=== PATIENT | female | born 1995 | race African-American/Black ===

== ENCOUNTER 2016-07-11 09:14 | Emergency (ER) | payer MEDICAID ==
[~2016-07-11] VITALS: Ht 167.6 cm; Wt 54.0 kg
[2016-07-11] MEDS ORDERED: ONDANSETRON HCL 4MG/2ML VIAL IV STA (09:39)
[2016-07-11] MEDS ORDERED: IBUPROFEN 600MG TABLET PO STA (09:39)
[2016-07-11] MEDS ORDERED: DICYCLOMINE HCL 10MG CAPSULE PO ONE (09:45)
[2016-07-11 10:14] LABS: HEMATOCRIT. 38.9 % (36.0-48.0); HEMOGLOBIN. 12.9 g/dL (12.0-16.0); MEAN CORPUSCULAR HEMOGLOBIN 27.6 pg (28.0-32.0); MEAN CORPUSCULAR VOLUME 83.1 fL (81.0-99.0); MEAN PLATELET VOLUME 8.6 fl (7.4-10.4); PLATELET 213 x1000/uL (130-400); RED BLOOD CELL COUNT 4.68 mill/uL (4.2-5.4)
[2016-07-11] MEDS ORDERED: MORPHINE SULFATE 4 MG/ML CPJ (NOT FOR IM USE) IV ONE (10:15)
[2016-07-11] MEDS ORDERED: KETOROLAC 30MG/ML VIAL IV ONE (10:15)
[2016-07-11 10:20] LABS: CHLORIDE 108 mEq/L (98-107)
[2016-07-11 10:26] LABS: CARBON DIOXIDE 23 mEq/L (21-32)
[2016-07-11 10:59] LABS: PLATELET ESTIMATE NORMAL
[2016-07-11 11:07] LABS: GLUCOSE URINE NEGATIVE (NEGATIVE); KETONES URINE 3+ (NEGATIVE); LEUKOCYTE ESTERASE URINE 2+ (NEGATIVE); NITRITE URINE NEGATIVE (NEGATIVE); OCCULT BLOOD URINE 3+ (NEGATIVE); PROTEIN URINE 2+ (NEGATIVE); SPECIFIC GRAVITY URINE 1.021 (1.005-1.030)
[2016-07-11 11:09] LABS: CLARITY URINE CLOUDY (CLEAR); COLOR URINE YELLOW (YELLOW)
[2016-07-11 11:45] LABS: *AMPHETAMINES SCREEN URINE NEGATIVE (NEGATIVE); *BARBITURATES SCREEN URINE NEGATIVE (NEGATIVE); *BENZODIAZEPINES SCREEN URINE NEGATIVE (NEGATIVE); *COCAINE SCREEN URINE NEGATIVE (NEGATIVE); METHADONE URINE SCREEN NEGATIVE (NEGATIVE); OPIATES URINE SCREEN NEGATIVE (NEGATIVE); PHENCYCLIDINE URINE SCREEN NEGATIVE (NEGATIVE)
[2016-07-11] MEDS ORDERED: METOCLOPRAMIDE HCL 10MG/2ML VIAL IV ONE (11:45)
[2016-07-11] MEDS ORDERED: NITROFURANTOIN 100MG M/M CAPSULE PO ONE (11:45)
[2016-07-11 11:59] LABS: CANNABINOID URINE SCREEN PRESUMTIVE POSITIVE (NEGATIVE)
[2016-07-11 12:00] VITALS: BP 105/59
[2016-07-11] MEDS ORDERED: SODIUM CHLORIDE 0.9% 500 ML IV ONE (12:15)
== END 2016-07-11 13:24 | disposition home or self-care (01) ==
LOC: ER 09:14
DX: N39.0 Urinary tract infection, site not specified (principal)
CPT/HCPCS: 36415; 80053; 80305; 81001; 81025; 83690; 85025; 96361; 96374; 96375; 99284; J2270; J2405; J2765; J7040; Z7610

== ENCOUNTER 2016-08-08 16:49 | Emergency (ER) | payer MEDICAID ==
[~2016-08-08] VITALS: Ht 167.6 cm; Wt 48.0 kg
[2016-08-08] MEDS ORDERED: ONDANSETRON HCL 4MG/2ML VIAL IV STA (17:39)
[2016-08-08] MEDS ORDERED: KETOROLAC 30MG/ML VIAL IV STA (17:39)
[2016-08-08] MEDS ORDERED: SODIUM CHLORIDE 0.9% 1,000 ML IV ONE (17:39)
[2016-08-08 18:12] LABS: BASOPHILS % 0.8 % (0.0-2.0); EOSINOPHILS % 1.1 % (0.0-5.0); HEMATOCRIT. 36.1 % (36.0-48.0); HEMOGLOBIN. 12.1 g/dL (12.0-16.0); INR 1.1; LYMPHOCYTES % 33.4 % (20.0-50.0); MEAN CORPUSCULAR HEMOGLOBIN 28.2 pg (28.0-32.0); MEAN CORPUSCULAR VOLUME 84.3 fL (81.0-99.0); MEAN PLATELET VOLUME 8.7 fl (7.4-10.4); MONOCYTES % 6.3 % (2.0-8.0); NEUTROPHILS % 58.4 % (40.0-76.0); PLATELET 198 x1000/uL (130-400); PROTHROMBIN TIME 11.1 sec; RED BLOOD CELL COUNT 4.28 mill/uL (4.2-5.4)
[2016-08-08 18:15] LABS: CLARITY URINE CLEAR (CLEAR); COLOR URINE YELLOW (YELLOW); GLUCOSE URINE NEGATIVE (NEGATIVE); KETONES URINE NEGATIVE (NEGATIVE); LEUKOCYTE ESTERASE URINE 1+ (NEGATIVE); NITRITE URINE NEGATIVE (NEGATIVE); OCCULT BLOOD URINE NEGATIVE (NEGATIVE); PH URINE 6.5 (4.5-8.0); PROTEIN URINE NEGATIVE (NEGATIVE); SPECIFIC GRAVITY URINE 1.027 (1.005-1.030)
[2016-08-08 18:21] LABS: CARBON DIOXIDE 28 mEq/L (21-32); CHLORIDE 108 mEq/L (98-107)
[2016-08-08] MEDS ORDERED: MORPHINE SULFATE 4 MG/ML CPJ (NOT FOR IM USE) IV ONE (20:15)
[2016-08-08 20:40] LABS: *AMPHETAMINES SCREEN URINE NEGATIVE (NEGATIVE); *BARBITURATES SCREEN URINE NEGATIVE (NEGATIVE); *COCAINE SCREEN URINE NEGATIVE (NEGATIVE); METHADONE URINE SCREEN NEGATIVE (NEGATIVE); OPIATES URINE SCREEN NEGATIVE (NEGATIVE); PHENCYCLIDINE URINE SCREEN NEGATIVE (NEGATIVE)
[2016-08-08 20:42] VITALS: BP 114/58
[2016-08-08 20:46] LABS: *BENZODIAZEPINES SCREEN URINE NEGATIVE (NEGATIVE)
[2016-08-08 20:50] LABS: CANNABINOID URINE SCREEN PRESUMTIVE POSITIVE (NEGATIVE)
== END 2016-08-08 20:43 | disposition home or self-care (01) ==
LOC: ER 18:27
DX: N39.0 Urinary tract infection, site not specified (principal); N94.6 Dysmenorrhea, unspecified; M54.5 Low back pain; Z87.442 Personal history of urinary calculi
CPT/HCPCS: 36415; 76770; 80053; 80305; 81001; 81025; 85025; 85610; 96361; 96374; 96375; 99285; J1885; J2270; J2405; J7030

== ENCOUNTER 2016-10-12 04:18 | Inpatient (IN) | payer MEDICAID ==
[~2016-10-12] VITALS: Ht 165.1 cm; Wt 54.9 kg
[2016-10-12 05:33] LABS: CLARITY URINE CLOUDY (CLEAR); COLOR URINE YELLOW (YELLOW); GLUCOSE URINE NEGATIVE (NEGATIVE); KETONES URINE 2+ (NEGATIVE); LEUKOCYTE ESTERASE URINE 1+ (NEGATIVE); NITRITE URINE POSITIVE (NEGATIVE); OCCULT BLOOD URINE 3+ (NEGATIVE); PROTEIN URINE TRACE (NEGATIVE); SPECIFIC GRAVITY URINE 1.022 (1.005-1.030); UROBILINOGEN URINE 0.2 E.U./dL (0.2-1.0)
[2016-10-12] MEDS ORDERED: SODIUM CHLORIDE 0.9% 1,000 ML IV ONE (07:54)
[2016-10-12] MEDS ORDERED: ONDANSETRON HCL 4MG/2ML VIAL IV STA (07:54)
[2016-10-12] MEDS ORDERED: KETOROLAC 30MG/ML VIAL IV STA (07:54)
[2016-10-12 08:17] LABS: HEMATOCRIT. 38.8 % (36.0-48.0); HEMOGLOBIN. 12.7 g/dL (12.0-16.0); MEAN CORPUSCULAR HEMOGLOBIN 27.7 pg (28.0-32.0); MEAN CORPUSCULAR VOLUME 84.7 fL (81.0-99.0); MEAN PLATELET VOLUME 8.4 fl (7.4-10.4); PLATELET 226 x1000/uL (130-400); RED BLOOD CELL COUNT 4.58 mill/uL (4.2-5.4); RED CELL DISTRIBUTION WIDTH 14.4 % (11.6-14.6)
[2016-10-12 08:22] LABS: CHLORIDE 106 mEq/L (98-107)
[2016-10-12 08:23] LABS: INR 1.1; PROTHROMBIN TIME 11.2 sec (9.4-11.6)
[2016-10-12 08:26] LABS: CARBON DIOXIDE 24 mEq/L (21-32)
[2016-10-12 08:53] LABS: PLATELET ESTIMATE NORMAL
[2016-10-12] MEDS ORDERED: MORPHINE SULFATE 4 MG/ML CPJ (NOT FOR IM USE) IV STA (10:13)
[2016-10-12] MEDS ORDERED: CEFTRIAXONE 2 G PREMIX 50 ML IV ONE (10:15)
[2016-10-12] MEDS ORDERED: PIPERACILLIN/TAZ 3.375G PREMIX 50 ML IV ONE (10:15)
[2016-10-12] MEDS ORDERED: ONDANSETRON HCL 4MG/2ML VIAL IV ONE (10:30)
[2016-10-12] MEDS ORDERED: SODIUM CHLORIDE 0.9% 1,000 ML IV SCH (10:34)
[2016-10-12] MEDS ORDERED: IBUPROFEN 600MG TABLET PO PRN (10:45)
[2016-10-12 12:45] VITALS: BP 142/83
[2016-10-12] MEDS ORDERED: ONDANSETRON HCL 4MG/2ML VIAL IV PRN (13:00)
[2016-10-12] MEDS: MORPHINE SULFATE 4 MG/ML CPJ (NOT FOR IM USE) IV PRN ×2 (15:10→21:25)
[2016-10-12] MEDS: METOCLOPRAMIDE HCL 10MG/2ML VIAL IV SCH ×2 (15:10→18:19)
[2016-10-12 16:00] VITALS: BP 122/80
[2016-10-12 20:04] VITALS: BP 116/57
[2016-10-13] VITALS: BP 173/95
[2016-10-13] MEDS: METOCLOPRAMIDE HCL 10MG/2ML VIAL IV SCH ×3 (00:08→12:39)
[2016-10-13 00:42] VITALS: BP 112/67
[2016-10-13] MEDS: MORPHINE SULFATE 4 MG/ML CPJ (NOT FOR IM USE) IV PRN ×2 (05:06→10:17)
[2016-10-13 06:20] VITALS: BP 104/63
[2016-10-13 08:00] VITALS: BP 103/62
[2016-10-13] MEDS ORDERED: CEFTRIAXONE 1 G PREMIX 50 ML IV SCH (09:00)
[2016-10-13 10:31] LABS: BASOPHILS % 0.7 % (0.0-2.0); EOSINOPHILS % 0.2 % (0.0-5.0); HEMATOCRIT. 36.2 % (36.0-48.0); HEMOGLOBIN. 12.1 g/dL (12.0-16.0); LYMPHOCYTES % 20.6 % (20.0-50.0); MEAN CORPUSCULAR HEMOGLOBIN 28.1 pg (28.0-32.0); MEAN CORPUSCULAR VOLUME 83.9 fL (81.0-99.0); MEAN PLATELET VOLUME 8.5 fl (7.4-10.4); MONOCYTES % 8.1 % (2.0-8.0); NEUTROPHILS % 70.4 % (40.0-76.0); PLATELET 190 x1000/uL (130-400); RED BLOOD CELL COUNT 4.31 mill/uL (4.2-5.4); RED CELL DISTRIBUTION WIDTH 14.4 % (11.6-14.6)
[2016-10-13 10:49] LABS: CARBON DIOXIDE 27 mEq/L (21-32); CHLORIDE 103 mEq/L (98-107)
[2016-10-13 12:00] VITALS: BP 106/63
[2016-10-13] MEDS ORDERED: POTASSIUM CHLORIDE 20MEQ TABLET SR PO NR (13:30)
[2016-10-13 15:22] LABS: CLARITY URINE CLEAR (CLEAR); COLOR URINE YELLOW (YELLOW); GLUCOSE URINE NEGATIVE (NEGATIVE); KETONES URINE NEGATIVE (NEGATIVE); LEUKOCYTE ESTERASE URINE 2+ (NEGATIVE); NITRITE URINE NEGATIVE (NEGATIVE); OCCULT BLOOD URINE 3+ (NEGATIVE); PROTEIN URINE TRACE (NEGATIVE); SPECIFIC GRAVITY URINE 1.017 (1.005-1.030); UROBILINOGEN URINE 0.2 E.U./dL (0.2-1.0)
[2016-10-13 15:26] LABS: UCG SCREEN NEGATIVE
[2016-10-13 16:37] VITALS: BP 109/73
== END 2016-10-13 17:12 | disposition home or self-care (01) | DRG 465 ==
LOC: ER 07:45 → 8WST 10:40 → EDBEDREQ 10:46 → ENRESERV 12:10
PROVIDERS: ADMIT Internal Medicine; ATTEND Internal Medicine
DX: N20.0 Calculus of kidney (principal); E87.2 Acidosis; N39.0 Urinary tract infection, site not specified; R73.9 Hyperglycemia, unspecified; D72.829 Elevated white blood cell count, unspecified
CPT/HCPCS: 36415; 74176; 80048; 80053; 81001; 81025; 83605; 83690; 85025; 85610; 87040; 87077; 87086; 87186; 96361; 96365; 96375; 96376; 99285; J0696; J1885; J2270; J2405; J2543; J2765; J7030

== ENCOUNTER 2017-02-02 18:18 | Emergency (ER) | payer MEDICAID ==
[~2017-02-02] VITALS: Ht 165.1 cm; Wt 54.0 kg
[2017-02-02 19:55] VITALS: BP 125/79
[2017-02-02 21:01] LABS: CLARITY URINE CLOUDY (CLEAR); COLOR URINE YELLOW (YELLOW); KETONES URINE NEGATIVE (NEGATIVE); LEUKOCYTE ESTERASE URINE TRACE (NEGATIVE); NITRITE URINE NEGATIVE (NEGATIVE); OCCULT BLOOD URINE NEGATIVE (NEGATIVE); PROTEIN URINE NEGATIVE (NEGATIVE); SPECIFIC GRAVITY URINE 1.012 (1.005-1.030); UROBILINOGEN URINE 0.2 E.U./dL (0.2-1.0)
[2017-02-02 21:15] LABS: BASOPHILS % 0.6 % (0.0-2.0); EOSINOPHILS % 0.8 % (0.0-5.0); HEMATOCRIT. 33.7 % (36.0-48.0); HEMOGLOBIN. 11.4 g/dL (12.0-16.0); LYMPHOCYTES % 31.1 % (20.0-50.0); MEAN CORPUSCULAR HEMOGLOBIN 28.3 pg (28.0-32.0); MEAN PLATELET VOLUME 8.5 fl (7.4-10.4); MONOCYTES % 6.3 % (2.0-8.0); NEUTROPHILS % 61.2 % (40.0-76.0); PLATELET 195 x1000/uL (130-400); RED BLOOD CELL COUNT 4.02 mill/uL (4.2-5.4); RED CELL DISTRIBUTION WIDTH 12.1 % (11.6-14.6)
[2017-02-02 21:21] LABS: CARBON DIOXIDE 26 mEq/L (21-32); CHLORIDE 105 mEq/L (98-107)
[2017-02-02 21:40] LABS: B-HCG QUANTITATIVE 133065 mIU/mL (<3)
== END 2017-02-02 22:52 | disposition home or self-care (01) ==
LOC: ER 19:07
DX: O26.891 Other specified pregnancy related conditions, first trimester (principal); R10.2 Pelvic and perineal pain; Z3A.09 9 weeks gestation of pregnancy
CPT/HCPCS: 36415; 76801; 80053; 81001; 81025; 83690; 84702; 85025; 86850; 86900; 86901; 99285; Z7610

== ENCOUNTER 2017-08-12 17:16 | Observation (INO) | payer MEDICAID ==
[2017-08-12] MEDS ORDERED: PREN-142 PO (17:56)
== END 2017-08-12 18:23 | disposition home or self-care (01) ==
LOC: L&D 17:16
PROVIDERS: ADMIT Obstetrics & Gynecology; ATTEND Obstetrics & Gynecology
DX: O26.893 Other specified pregnancy related conditions, third trimester (principal); R07.81 Pleurodynia; O99.89 Other specified diseases and conditions complicating pregnancy, childbirth and the puerperium; M79.89 Other specified soft tissue disorders; Z3A.36 36 weeks gestation of pregnancy
CPT/HCPCS: 99281; G0378

== ENCOUNTER 2017-09-16 10:28 | Observation (INO) | payer MEDICAID ==
[~2017-09-16] VITALS: Ht 165.1 cm; Wt 79.4 kg
[~2017-09-16 10:28] MED LIST: PREN-142 PO
== END 2017-09-16 11:40 | disposition home or self-care (01) ==
LOC: L&D 10:28
PROVIDERS: ADMIT Obstetrics & Gynecology; ATTEND Obstetrics & Gynecology
DX: O62.9 Abnormality of forces of labor, unspecified (principal); O48.0 Post-term pregnancy; Z3A.40 40 weeks gestation of pregnancy
CPT/HCPCS: 99281; G0378

== ENCOUNTER 2020-03-14 17:47 | Emergency (ER) | payer MEDICAID ==
[~2020-03-14] VITALS: Ht 167.6 cm; Wt 67.0 kg
[~2020-03-14 17:47] MED LIST changes: -PREN-142 PO; +PRENATAL ONE T1 EACH PO
[2020-03-14] MEDS ORDERED: ACETAMINOPHEN 325MG TABLET PO STA (18:48)
[2020-03-14 19:26] LABS: BASOPHILS % 0.8 % (0.0-2.0); EOSINOPHILS % 0.5 % (0.0-5.0); HEMATOCRIT. 38.9 % (36.0-48.0); HEMOGLOBIN. 12.9 g/dL (12.0-16.0); LYMPHOCYTES % 20.3 % (20.0-50.0); MEAN CORPUSCULAR HEMOGLOBIN 26.5 pg (28.0-32.0); MEAN CORPUSCULAR VOLUME 79.7 fL (81.0-99.0); MEAN PLATELET VOLUME 9.2 fl (7.4-10.4); MONOCYTES % 7.6 % (2.0-8.0); NEUTROPHILS % 70.8 % (40.0-76.0); PLATELET 221 x1000/uL (130-400); RED BLOOD CELL COUNT 4.89 mill/uL (4.2-5.4)
[2020-03-14 19:42] LABS: CLARITY URINE CLOUDY (CLEAR); COLOR URINE YELLOW (YELLOW); KETONES URINE TRACE (NEGATIVE); LEUKOCYTE ESTERASE URINE 1+ (NEGATIVE); NITRITE URINE NEGATIVE (NEGATIVE); OCCULT BLOOD URINE NEGATIVE (NEGATIVE); PH URINE 6.5 (4.5-8.0); PROTEIN URINE TRACE (NEGATIVE); SPECIFIC GRAVITY URINE 1.028 (1.005-1.030)
[2020-03-14 19:47] LABS: CHLORIDE 105 mEq/L (98-107)
[2020-03-14 20:10] LABS: B-HCG QUANTITATIVE 91702 mIU/mL (<3)
[2020-03-14 21:03] VITALS: BP 113/84
== END 2020-03-14 21:56 | disposition home or self-care (01) ==
LOC: ER 17:47
DX: O23.31 Infections of other parts of urinary tract in pregnancy, first trimester (principal); Z3A.09 9 weeks gestation of pregnancy; Z98.890 Other specified postprocedural states
CPT/HCPCS: 36415; 76770; 76801; 80053; 81003; 81025; 84702; 85025; 93005; 99285

== ENCOUNTER 2022-07-12 17:57 | Emergency (ER) | payer MEDICAID ==
[~2022-07-12] VITALS: Ht 167.6 cm; Wt 87.0 kg
[2022-07-12 18:10] VITALS: BP 120/74
== END 2022-07-12 18:50 | disposition left against medical advice (07) ==
LOC: ER 17:57
DX: Z53.21 Procedure and treatment not carried out due to patient leaving prior to being seen by health care provider (principal)
CPT/HCPCS: 99281

== ENCOUNTER 2022-12-03 19:22 | Emergency (ER) | payer MEDICAID, OTHER ==
[~2022-12-03] VITALS: Ht 167.6 cm; Wt 92.0 kg
[2022-12-03 19:24] VITALS: O2SAT 100
[2022-12-03 19:49] LABS: BASOPHILS % 0.2 % (0.0-2.0); HEMATOCRIT. 31.4 % (36.0-48.0); HEMOGLOBIN. 10.5 g/dL (12.0-16.0); LYMPHOCYTES % 27.1 % (20.0-50.0); MEAN CORPUSCULAR HEMOGLOBIN 27.8 pg (28.0-32.0); MEAN CORPUSCULAR HGB CONC 33.4 g/dL (31.0-37.0); MEAN CORPUSCULAR VOLUME 83.1 fL (81.0-99.0); MEAN PLATELET VOLUME 9.9 fl (7.4-10.4); MONOCYTES % 6.6 % (2.0-8.0); NEUTROPHILS % 65.1 % (40.0-76.0); PLATELET 130 x1000/uL (130-400); RED BLOOD CELL COUNT 3.78 mill/uL (4.2-5.4); RED CELL DISTRIBUTION WIDTH 13.2 % (11.6-14.6)
[2022-12-03 20:04] LABS: CHLORIDE 109 mEq/L (98-107); INDEX HEMOLYSI 2 (1-3); INDEX ICTERIC 1 (1-4); INDEX LIPEMIC 1 (1-3); INR 0.9; SODIUM 139 mEq/L (136-145)
[2022-12-03 20:11] LABS: ALANINE AMINOTRANSFERASE 16 IU/L (13-61); ASPARTATE AMINOTRANSFERASE 17 IU/L (15-37); BILIRUBIN TOTAL 0.2 mg/dL (0.1-1.0); CALCIUM 8.9 mg/dL (8.5-10.1); CARBON DIOXIDE 25 mEq/L (21-32); CREATININE 0.8 mg/dL (0.6-1.3); GLUCOSE 92 mg/dL (70-105); PROTEIN TOTAL 6.8 g/dL (6.0-8.3); UREA NITROGEN BLOOD 6 mg/dL (7-21)
[2022-12-03 21:16] VITALS: BP 106/61; PULSE 88; RESP 19; TEMP 98.6
== END 2022-12-03 21:25 | disposition left against medical advice (07) ==
LOC: ER 19:22
DX: O26.93 Pregnancy related conditions, unspecified, third trimester (principal); Z87.442 Personal history of urinary calculi; Z3A.31 31 weeks gestation of pregnancy
CPT/HCPCS: 36415; 76805; 76818; 80053; 85025; 99285